=== PATIENT | female | born 1955 | race Caucasian/White ===

== ENCOUNTER 2017-08-01 14:02 | Emergency (ER) | payer MEDICAID ==
[~2017-08-01] VITALS: Ht 160 cm; Wt 66.2 kg
[~2017-08-01 14:02] MED LIST: ACIPHEX 20 MG T20 MG PO; AMBIEN 5 MG TABL5 M1 PO; ANTIVERT25 MG PO; CLONAZEPAM 0.50.5 M1 PO; CYMBALTA60 MG PO; IBUPROFEN 800800 M1 PO; NORVASC 5 MG TAB5 MG PO; PREDNISONE50 MG PO; REQUIP 1 MG TABL1 M1 PO; TESSALON PERLE100 MG PO; TRILEPTAL600 MG PO; VENTOLIN HFA 1818 GM INH; ZOCOR20 MG PO; ZOFRAN ODT4 MG PO; ZPAK PO
[2017-08-01 14:09] VITALS: BP 139/68
[2017-08-01] MEDS ORDERED: VISTARIL 25 MG25 M1 PO (14:29)
[2017-08-01] MEDS ORDERED: ACIPHEX 20 MG T20 MG PO (14:31)
--- NOTE | 2017-08-01 17:21 | EKG ---
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
== END 2017-08-01 15:24 | disposition left against medical advice (07) ==
LOC: M.ERS 14:02
DX: F41.9 Anxiety disorder, unspecified (principal); I10 Essential (primary) hypertension; Z88.5 Allergy status to narcotic agent; Z88.6 Allergy status to analgesic agent

== ENCOUNTER 2017-11-18 13:38 | Emergency (ER) | payer MEDICAID ==
[~2017-11-18] VITALS: Ht 165.1 cm; Wt 72.6 kg
[~2017-11-18 13:38] MED LIST changes: +VISTARIL 25 MG25 M1 PO
[2017-11-18 13:58] LABS: ABSOLUTE BASOPHILS 0.1 thou/uL (0.0-0.2); ABSOLUTE MONOCYTES 0.7 thou/uL (0.0-1.2); ABSOLUTE NEUTROPHILS 7.7 thou/uL (1.6-8.1); BASOPHILS 0.6 %; EOSINOPHILS 0.3 %; HEMATOCRIT 35.9 % (37.0-47.0); HEMOGLOBIN 12.3 gm/dL (12.0-15.0); LYMPHOCYTES 19.1 %; MCH 30.1 pg (26.0-34.0); MCHC 34.3 g/dL (28.0-37.0); MCV 87.7 fL (80.0-100.0); MONOCYTES 6.9 %; MPV 7.3 fl. (7.2-11.1); NUCLEATED RBCS 0 /100WBC; PLATELET COUNT* 298 thou/uL (150-400); POLYS 73.1 %; RBC 4.09 mil/uL (4.20-5.00); RDW-CV 13.3 % (10.5-14.5); WBC 10.6 thou/uL (4.0-11.0)
[2017-11-18 14:05] LABS: ANION GAP 10 mmol/L (7-16); BUN 23 mg/dL (7-18); CALCIUM 8.8 mg/dL (8.5-10.1); CHLORIDE 104 mmol/L (98-107); CO2 26 mmol/L (21-32); CREATININE 0.8 mg/dL (0.6-1.3); GLUCOSE 107 mg/dL (70-99); POTASSIUM 3.4 mmol/L (3.5-5.1); SODIUM 140 mmol/L (136-145)
[2017-11-18 14:06] LABS: APTT 23.4 Seconds (25.0-31.3); PROTIME 9.6 Seconds (9.20-11.50)
[2017-11-18 14:17] LABS: ALBUMIN 3.9 g/dL (3.4-5.0); ALKALINE PHOSPHATASE 112 U/L (46-116); NT-PRO BRAIN NAT PEPTIDE 202 pg/mL (<300); SGOT 13 U/L (15-37); SGPT 21 U/L (30-65); TOTAL BILIRUBIN 0.2 mg/dL (<0.1-1.0); TOTAL PROTEIN 6.9 g/dL (6.4-8.2); TROPONIN-I LEVEL <0.06 ng/mL (<0.06)
[2017-11-18 14:52] VITALS: BP 154/76
--- NOTE | 2017-11-18 15:01 | EKG ---
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1955 Requested By: Godfrey Rodgers Order Number: [id number] MD: Michael Quiroz Measurements Intervals [place] Rate: 89 P: 62 [place]: 165 QRS: 12 QRSD: 84 T: 54 QT: 361 QTc: 440 Interpretive Statements Sinus rhythm Borderline low voltage, extremity leads Abnormal R-wave progression, late transition Baseline wander in lead(s) V3 Compared to ECG 08/01/2017 14:11:29 Myocardial infarct finding no longer present Electronically Signed On 11-18-2017 15:01:20 CDT by Michael Quiroz [email or web address] <ELECTRONICALLY SIGNED> By: Michael Quiroz MD, [facility] 11/18/17 1501 1353 1353 Michael Quiroz MD, [facility] /EPI
== END 2017-11-18 14:56 | disposition home or self-care (01) ==
LOC: M.ERS 13:38
PROVIDERS: Family Medicine
DX: R53.1 Weakness (principal); I10 Essential (primary) hypertension; F41.9 Anxiety disorder, unspecified; F31.9 Bipolar disorder, unspecified; Z88.5 Allergy status to narcotic agent; Z88.6 Allergy status to analgesic agent

== ENCOUNTER 2018-11-30 16:52 | Emergency (ER) | payer MEDICAID ==
[~2018-11-30] VITALS: Ht 157.5 cm; Wt 70.1 kg
[2018-11-30] MEDS ORDERED: ZANAFLEX4 MG PO (17:31)
[2018-11-30] MEDS ORDERED: HYDROXYZINE HCL25 M1 PO (17:31)
[2018-11-30] MEDS ORDERED: PREDNISONE 20 M20 M1 PO (17:32)
[2018-11-30] MEDS ORDERED: ULTRAM 50MG TAB50 MG PO (17:32)
[2018-11-30 18:17] VITALS: BP 190/92
[2018-12-01] MEDS ORDERED: ULTRAM 50MG TAB50 MG PO (11:39)
[2018-12-01] MEDS ORDERED: PREDNISONE 20 M20 M1 PO (11:39)
== END 2018-11-30 18:17 | disposition home or self-care (01) ==
LOC: M.ERS 16:52
DX: M25.552 Pain in left hip (principal); I10 Essential (primary) hypertension; F41.9 Anxiety disorder, unspecified; F31.9 Bipolar disorder, unspecified; Z88.6 Allergy status to analgesic agent